=== PATIENT | male | born 1990 | race African-American/Black ===

== ENCOUNTER 2017-10-29 05:27 | Day surgery (SDC) | payer BC ==
[~2017-10-29] VITALS: Ht 182.9 cm; Wt 87.6 kg
--- NOTE | ~2017-10-29 | H ---
[facility] [place] [address] HISTORY AND PHYSICAL Name: MADELEINE LLAMASRE Boris Room #: DEP [facility].#: [id number] Admission: 10/29/17 Attend Phys: Maverick Stokes MD Discharge: 10/29/17 Date of : 89 Report #: [id number] THIS REPORT FOR: //name// CC: Teetee Stokes DATE OF SERVICE: 10/29/2017 Procedure is scheduled for 10/29/2017. HISTORY OF PRESENT ILLNESS: The patient has been having problems with his tonsils over the last couple of years. They are persistently swollen causing him to have upper airway symptoms. He is a terrible snorer and his thinks he is having symptoms of obstructive sleep apnea. He wakes up frequently in the night and does not get a good night sleep. His tonsils are persistently swollen and sore. PAST MEDICAL HISTORY: Otherwise, not significant. MEDICATIONS: He is on no medications on a regular basis. ALLERGIES: He has no known drug allergies. PHYSICAL EXAMINATION: HEENT: He had a good anterior nasal airway. He had 3+ enlarged tonsils with deep crypts and blockage of the posterior pharynx. He had thick purulent drainage running down from the nasopharynx. He had no adenopathy or masses in his neck. IMPRESSION: Chronic sinusitis, acute sinusitis, chronic tonsillitis, and tonsil and probable adenoid hypertrophy. PLAN: Tonsillectomy and adenoidectomy. <ELECTRONICALLY SIGNED> By: Maverick Stokes MD 11/01/17 1330 [id number] [id number] Maverick Stokes MD /nt
--- NOTE | ~2017-10-29 | S ---
[facility] [place] [address] SURGICAL PATH RPT PROCEDURE Name: FARHADRUBI M Room #: DEP [facility].#: [id number] Admission: 10/29/17 Date of : 89 Discharge: 10/29/17 Report #: [id number] Path Case #: [id number] PATHOLOGY REPORT COLLECTION DATE: 10/29/2017 RECEIVED DATE: 10/29/2017 SUBMITTING PHYS: Dr. Maverick Stokes OTHER PHYS: Dr. Teetee Mancia SPECIMEN(S) RECEIVED: A.Right tonsil and adenoids B.Left tonsil * * * * * * * * * * * * FINAL DIAGNOSIS: A. Right tonsil and adenoid, tonsillectomy and adenoidectomy: - Acutely inflamed epithelium overlying lymphoid tissue with reactive hyperplasia. B. Left tonsil, tonsillectomy: - Acutely inflamed epithelium overlying lymphoid tissue with reactive hyperplasia. PATHOLOGIST: Seema Obrien M.D. REPORT ELECTRONICALLY SIGNED BY: Seema Obrien M.D. DATE/TIME: 10/30/2017 14:55 * * * * * * * * * * * * GROSS PATHOLOGY: A. Received in formalin labeled "María Llamasndre, right tonsil and adenoids," is a tonsil measuring 3.8 x 2.6 x 2.3 cm in maximum dimensions and multiple pieces of casillas lobulated lymphoid appearing tissue consistent with adenoids measuring 2.3 x 2.1 x 0.9 cm in aggregate dimensions. The mucosal surface of the tonsil is casillas with the typical crypts identified. Sectioning reveals lobulated, homogeneous light casillas cut surfaces with no grossly identifiable lesions. [employer] tissue is submitted in cassette A1. B. Received in formalin, labeled "Rubi Llamas, left tonsil," is a tonsil measuring 3.9 x 2.2 x 2.0 cm in maximum dimensions. The mucosal surface is casillas with the typical crypts identified. Sectioning reveals lobulated, homogeneous light casillas cut surfaces with no grossly identifiable lesions. [employer] tissue is submitted in cassette B1. (SDY; 10/29/2017) CLINICAL HISTORY: [address] [address] SURGICAL PATH RPT PROCEDURE Name: MADELEINE LLAMASRE Boris Room #: [facility] M.Claudia.#: [id number] Admission: 10/29/17 Date of : 89 Discharge: 10/29/17 Report #: [id number] Path Case #: [id number] Chronic tonsillitis, chronic and acute sinusitis and adenoids Hypertrophy INITIAL CPT CODE(S): A; 30445 B; 77873 Professional services performed by [facility] at [address] , [place] [address] Technical services performed by [facility] at [address] [place] [address], [facility] [address] [address]. [facility] [address] [address] PHONE: [phone] DIRECTOR: Agustin W. Barbara, M.D. * * * END OF REPORT * * *
--- NOTE | ~2017-10-29 | O ---
[facility] [place] [address] OPERATIVE REPORT Name: JOSELITO LLAMAS Room #: DEP [facility].#: [id number] Admission: 10/29/17 Attend Phys: Maverick Stokes MD Discharge: 10/29/17 Date of : 89 Report #: [id number] THIS REPORT FOR: //name// CC: Teetee Stokes DATE OF SERVICE: 10/29/2017 PREOPERATIVE DIAGNOSES: Chronic tonsillitis, tonsil and adenoid hypertrophy, obstructive sleep apnea, chronic sinusitis. POSTOPERATIVE DIAGNOSES: Chronic tonsillitis, tonsil and adenoid hypertrophy, obstructive sleep apnea, chronic sinusitis. OPERATIVE PROCEDURE: Tonsillectomy and adenoidectomy. ANESTHESIA: General endotracheal. DESCRIPTION OF PROCEDURE: The patient was taken to the operating room and placed in supine position. General anesthesia was induced by endotracheal intubation. Once adequate general anesthesia was obtained, the patient was draped in a sterile manner. A Deniz-Isaías mouth gag was placed into the patient's mouth, and the tongue was deviated upward. Red rubber catheters were placed through the nose and nasopharynx and out the oropharynx and oral cavity to elevate the soft palate, and the nasopharynx was visualized indirectly using a mirror, the adenoid was hypertrophied, and adenoidectomy was performed by placing the adenoid curette at the base of the vomer and sweeping downward. The adenoid was removed and sent to pathology. Nasopharyngeal packing was placed. The right tonsil was grasped and deviated towards midline. An incision was placed in the anterior tonsillar pillar using the Bovie electrocautery, and a plane between tonsillar capsule and tonsillar fossa was established. Dissection was carried out in this plane using the Bovie, and hemostasis was achieved during the dissection. Dissection was carried out from superior to the inferior, the inferior pole is incised, the posterior tonsillar mucosa was incised. The tonsil was removed and sent to pathology. Left tonsil was removed in exactly the same manner. The area was then irrigated with normal saline. Hemostasis was verified in the tonsillar beds. The nasopharyngeal packing was removed. The nasopharynx was irrigated, and there was adequate hemostasis in the nasopharynx as well. The mouth gag and red rubber catheters were removed. The patient tolerated the procedure well. Blood loss approximately 10 mL. The patient was then awoken and taken to the recovery room in stable condition for postoperative monitoring. <ELECTRONICALLY SIGNED> By: Maverick Stokes MD 11/01/17 1332 [id number] Maverick Stokes MD /nt
[2017-10-29 07:00] VITALS: BP 122/76
[2017-10-29 08:24] VITALS: BP 122/76
== END 2017-10-29 10:45 | disposition home or self-care (01) ==
LOC: EDSEX → OR 05:27 → TBA 05:28 → OR 09:45
DX: J35.01 Chronic tonsillitis (principal); J32.9 Chronic sinusitis, unspecified; J35.3 Hypertrophy of tonsils with hypertrophy of adenoids; G47.33 Obstructive sleep apnea (adult) (pediatric)
CPT/HCPCS: 50010; 50101; 62110; 62900; 64032; 70005

== ENCOUNTER 2018-08-20 22:23 | Emergency (ER) | payer OTHER ==
[~2018-08-20] VITALS: Ht 182.9 cm; Wt 90.7 kg
[2018-08-20] MEDS ORDERED: IBUPROFEN 800800 M1 PO (23:14)
[2018-08-20 23:41] VITALS: BP 120/76
== END 2018-08-20 23:42 | disposition home or self-care (01) ==
LOC: ER 22:23
DX: S63.682A Other sprain of left thumb, initial encounter (principal); G47.30 Sleep apnea, unspecified; W21.05XA Struck by basketball, initial encounter; Y92.89 Other specified places as the place of occurrence of the external cause; Y99.0 Civilian activity done for income or pay; Y99.8 Other external cause status